=== PATIENT | male | born 1950 | race Two or more races ===

== ENCOUNTER 2024-07-17 07:44 | Outpatient (OUT) | payer MEDICARE, SELFPAY ==
--- NOTE | 2024-07-17 09:08 | P.GSHP_ITS ---
History of Present Illness History of Present Illness Chief complaint: BPH with Obstruction Narrative: Patient presents for preadmission testing. The patient states he had a follow- up with urology, and he is still experiencing frequency, nocturia, and postvoid dribbling. He states he is not having any abdominal pain, nausea, vomiting, fever, or any other complaints. The patient states he has a history of seizures with amnesia, the last was over 4 years ago and he is followed by neurology. He has a known heart murmur with aortic stenosis and he is followed by cardiology. Review of Systems ROS Narrative REVIEW OF SYSTEMS: Negative except as stated in HPI, ten or more systems reviewed. Constitutional: No fever, chills, weakness ENT: No sore throat or epistaxis Cardiovascular: No edema, chest pain, palpitations, or activity intolerance Respiratory: No shortness of breath, cough, or wheezing Musculoskeletal: No joint pain or swelling Gastrointestinal: No abdominal pain, constipation, diarrhea, or vomiting Genitourinary: No dysuria or hematuria Neurological: No numbness, tingling, weakness, or headache Psychiatric: No mood changes [facility] Medical History (Updated 07/17/24 @ 09:14 by Vandana Juarez NP) Restless leg ?G25.81 - Restless legs syndrome (ICD-10) Seizures ?R56.9 - Unspecified convulsions (ICD-10) Sleep apnea ?G47.30 - Sleep apnea, unspecified (ICD-10) Asthma ?J45.909 - Unspecified asthma, uncomplicated (ICD-10) Heart murmur ?R01.1 - Cardiac murmur, unspecified (ICD-10) Ankle pain ?M25.579 - Pain in unspecified ankle and joints of unspecified foot (ICD-10) Erectile dysfunction ?N52.9 - Male erectile dysfunction, unspecified (ICD-10) BPH with obstruction/lower urinary tract symptoms ?N40.1 - Benign prostatic hyperplasia with lower urinary tract symptoms (ICD- 10) ?N13.8 - Other obstructive and reflux uropathy (ICD-10) Non-ischemic cardiomyopathy ?I42.8 - Other cardiomyopathies (ICD-10) Aortic regurgitation ?I35.1 - Nonrheumatic aortic (valve) insufficiency (ICD-10) Aortic stenosis ?I35.0 - Nonrheumatic aortic (valve) stenosis (ICD-10) Hypertension ?I10 - Essential (primary) hypertension (ICD-10) H/O reduction of closed fracture ?Z87.81 - Personal history of (healed) traumatic fracture (ICD-10) Leg fracture ?S82.90XA - Unspecified fracture of unspecified lower leg, initial encounter for closed fracture (ICD-10) Surgical History (Updated 07/17/24 @ 08:45 by Vandana Juarez NP) History of colonoscopy ?Z98.890 - Other specified postprocedural states (ICD-10) S/P cystoscopy ?Z98.890 - Other specified postprocedural states (ICD-10) Family History (Updated 07/17/24 @ 08:45 by Vandana Juarez NP) Other Family history of diabetes mellitus Family history of myocardial infarction Social History (Updated 07/17/24 @ 08:36 by Vandana Juarez NP) Within the past year, how often did you have a drink containing alcohol: never Score interpretation: A score less than 4 is consistent with normal alcohol consumption. Smoking status: Never smoker Non-prescribed substance use: denies use Highest level of school completed/degree received: high school graduate Meds Home Medications and Allergies Home Medications ?Medication ?Instructions ?Recorded ?Confirmed ?Type Super Beta Prostate supplement 07/17/24 History aspirin 81 mg tablet,delayed 81 mg PO DAILY 07/17/24 07/17/24 History release (Adult Aspirin Regimen) carvedilol 6.25 mg tablet 6.25 mg PO Q12H 07/17/24 07/17/24 History clonidine HCl 0.1 mg tablet 0.1 mg PO Q12H 07/17/24 07/17/24 History finasteride 5 mg tablet 5 mg PO DAILY 07/17/24 07/17/24 History furosemide 20 mg tablet 20 mg PO DAILY 07/17/24 07/17/24 History gabapentin 300 mg capsule 600 mg PO DAILY 07/17/24 07/17/24 History hydralazine 100 mg tablet 100 mg PO BID 07/17/24 07/17/24 History hydralazine 50 mg tablet 50 mg PO Q12H 07/17/24 07/17/24 History hydrochlorothiazide 12.5 mg tablet 12.5 mg PO DAILY 07/17/24 07/17/24 History lamotrigine 100 mg tablet 100 mg PO Q12H 07/17/24 07/17/24 History losartan 100 mg tablet 100 mg PO QPM 07/17/24 07/17/24 History tamsulosin 0.4 mg capsule 0.4 mg PO Q24H 07/17/24 07/17/24 History Allergies Allergy/AdvReac Type Severity Reaction Status Date / Time No Known Drug Allergies Allergy Verified 07/17/24 08:26 Exam Narrative Exam Narrative: Constitutional: Awake, alert, comfortable, well-appearing, nontoxic, interactive, vital signs as charted Head: Normocephalic, atraumatic Neck: Supple, normal appearance, normal range of motion, no meningeal signs, no lymphadenopathy Respiratory: No respiratory distress, breath sounds clear Cardiovascular: Regular rate, irregular rhythm, systolic murmur noted Abdomen: Nontender, normal bowel sounds, soft, no CVA tenderness Musculoskeletal: Normal gait, no swelling or edema Skin: No rashes or induration, no lesions, only visible skin inspected Neuro: No neurological deficits, normal sensation Psychiatric: Oriented ?3, normal affect Assessment and Plan Assessment and Plan (1) BPH with obstruction/lower urinary tract symptoms: Plan Cystoscopy/TURP scheduled with Dr. Garcia July 25, 2024.
== END 2024-07-17 07:45 | disposition home or self-care (01) ==
LOC: PST 07:51
PROVIDERS: PCP Family Medicine; Visit Provider Urology
DX: Z01.818 Encounter for other preprocedural examination (principal); N40.1 Benign prostatic hyperplasia with lower urinary tract symptoms
CPT/HCPCS: G0463

== ENCOUNTER 2024-07-25 13:19 | Day surgery (SDC) | payer MEDICARE, SELFPAY ==
[2024-07-17 09:04] VITALS: BP 121/62; PULSE 60; TEMP 36.3; O2SAT 97; BMI 27.4
[2024-07-25] VITALS (16 sets, daily range): BP systolic 125–179; BP diastolic 63–91; PULSE 53–72; TEMP 36.2–36.6; O2SAT 93–98; BMI 26.4
[2024-07-25] MEDS: LACTATED RINGER'S SOLUTION 1,000 ML 50 ML IV (13:50)
[2024-07-25] MEDS: LEVOFLOXACIN IN DEXTROSE 5 % 500 MG/100 ML PREMIX 100 MG IV (15:00)
--- NOTE | 2024-07-25 16:09 | PM.URSON ---
Urology Surgery Operative Note Operative Note Procedure Date: 07/25/24 Time Out Performed: yes Pre-op Diagnosis: BPH with LUTS refractory to medications Post-op Diagnosis: same as pre-op Procedures performed: 1. Cystoscopy. 2. Transurethral resection of the prostate. Anesthesia: GETA Primary Surgeon: Venancio Garcia Complications: None Estimated blood loss (mL): 10 Findings: Purulence pockets in the lateral lobes on removed. Specimens: Prostate chips Drains: 22 [place] three-way coud? Cordero catheter in the bladder taped to traction and CBI Indications for Procedures: This gentleman has BPH with LUTS refractory to medications. Endoscopically he is obstructed and bilobar fashion. He is strongly desirous for TURP. He has signed an informed consent after risks were explained. Some of these risks include bleeding, infection, anesthesia, urinary incontinence both temporary and permanent, retrograde ejaculation, erectile dysfunction, possible need for further operations to name a few. Detailed description of Procedure: The patient was brought to the operating room and placed on the operating room table in the supine position. SCDs were placed on the lower extremities and turned on and functioning during the entire case. Timeout was done by all parties in the room. We all agreed upon the patient's identification and the planned procedures for this patient. Genn. anesthesia was then administered. The patient was then repositioned into the modified dorsal lithotomy position. All pressure points were satisfactorily padded. Genitalia were sterilely prepped and draped in usual fashion. I started by passing a 26 [place] Olympus resectoscope with a standard bipolar loop electrode per urethra and into the bladder. The ureteral orifices were identified and marked with the loop electrode. I then uniformly resected the median lobe down to the bladder neck level. I then resected posteriorly from the bladder neck to the Veru. I then resected the lateral lobes from the bladder neck to the Veru level. Purulence pockets were unroofed. The anterior tissue was resected similarly. The apex was then opened up. The resection bed was fully coagulated with the loop electrode. The Ilich evacuator was used to get all of the prostate chips out of the bladder. These were sent for permanent sections. Upon completion with the scope at the apex the prostatic urethra and bladder neck were now wide open. There was no bleeding. There were no chips remaining in the bladder. The scope was then removed. I then placed a 22 [place] three-way coud? Cordero in the bladder. This was manually irrigated. 30 cc of fluid was placed in the balloon. It was taped to traction and CBI was started. It irrigated clear. The anesthetic was then reversed. He was then transferred to a [facility] bed and wheeled to PACU in stable condition. Urinary Catheter Management Urinary Catheter Management Urethral: Cath placed during this visit: no
[2024-07-25] MEDS: SOLIFENACIN SUCCINATE 10 MG TABLET PO (17:08)
[2024-07-25] MEDS: SODIUM CHLORIDE IRRIG SOLUTION 3,000 ML 3000 ML IRR ×4 (17:09→22:00)
[2024-07-25] MEDS: 0.9 % SODIUM CHLORIDE 1,000 ML 80 ML IV (17:09)
[2024-07-25] MEDS: OXYCODONE HCL 5 MG TABLET PO (19:21)
[2024-07-25] MEDS: LOSARTAN POTASSIUM 50 MG TABLET 100 MG PO (19:22)
[2024-07-25] MEDS: HYDRALAZINE HCL 50 MG TABLET 150 MG PO (21:17)
[2024-07-25] MEDS: LAMOTRIGINE 100 MG TABLET PO (21:18)
[2024-07-25] MEDS: CARVEDILOL 6.25 MG TABLET PO (21:18)
[2024-07-25] MEDS: CLONIDINE HCL 0.1 MG TABLET PO (21:18)
[2024-07-25] MEDS: TEMAZEPAM 15 MG CAPSULE PO (22:00)
[2024-07-26] VITALS: BP 114/61; PULSE 57; TEMP 36.6; O2SAT 90
[2024-07-26] MEDS: SODIUM CHLORIDE IRRIG SOLUTION 3,000 ML 3000 ML IRR ×2 (00:01→01:57)
[2024-07-26 04:00] VITALS: BP 127/64; PULSE 57; TEMP 36.6; O2SAT 94
--- NOTE | 2024-07-26 05:10 | PC.NURSE ---
Patients urine remains clear and pale yellow. Traction removed at this time. patient c/o feeling like he has to urinate
--- NOTE | 2024-07-26 06:28 | PC.NURSE ---
Urine turned watermelon in color after traction removed. CBI stopped, leg bag attached, education provided and patient ambulated halls. Tolerated well. Patient continues to feel like he has to urinate
[2024-07-26 07:54] VITALS: BP 167/73; PULSE 63; TEMP 36.7; O2SAT 94
[2024-07-26] MEDS: GABAPENTIN 300 MG CAPSULE 600 MG PO (09:20)
[2024-07-26] MEDS: LAMOTRIGINE 100 MG TABLET PO (09:20)
[2024-07-26] MEDS: CARVEDILOL 6.25 MG TABLET PO (09:20)
[2024-07-26] MEDS: FUROSEMIDE 20 MG TABLET PO (09:20)
[2024-07-26] MEDS: SOLIFENACIN SUCCINATE 10 MG TABLET PO (09:20)
[2024-07-26] MEDS: CLONIDINE HCL 0.1 MG TABLET PO (09:21)
[2024-07-26] MEDS: HYDROCHLOROTHIAZIDE 25 MG TABLET 12.5 MG PO (09:21)
[2024-07-26] MEDS: HYDRALAZINE HCL 50 MG TABLET 150 MG PO (09:21)
== END 2024-07-26 09:58 | disposition home or self-care (01) ==
LOC: SURGOUT 16:06 → MS 07-26 08:51
PROVIDERS: PCP Family Medicine; Visit Provider Urology
PROC: (CPT 52601; principal; 2024-07-25 13:35)
DX: N40.1 Benign prostatic hyperplasia with lower urinary tract symptoms (principal); J45.909 Unspecified asthma, uncomplicated; N52.9 Male erectile dysfunction, unspecified; R35.0 Frequency of micturition; R35.1 Nocturia; N39.43 Post-void dribbling; R56.9 Unspecified convulsions; R31.29 Other microscopic hematuria; G47.33 Obstructive sleep apnea (adult) (pediatric); I11.0 Hypertensive heart disease with heart failure; I50.9 Heart failure, unspecified
CPT/HCPCS: 52601; 88305; J2250; J2704; J2710; J3010